=== PATIENT | male | born 1995 | race Caucasian/White ===

== ENCOUNTER 2022-06-12 11:11 | Emergency (ER) | payer OTHER ==
[~2022-06-12] VITALS: Ht 160 cm; Wt 67.1 kg
--- NOTE | 2022-06-12 11:45 | NUR ---
DR MARSH AT BEDSIDE FOR EVAL
--- NOTE | 2022-06-12 11:52 | NUR ---
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
--- NOTE | 2022-06-12 12:15 | NUR ---
Patient discharged to home in stable condition. Written and verbal after care instructions given. Patient verbalizes understanding of instruction.
[2022-06-12 12:16] VITALS: BP 125/75
== END 2022-06-12 12:17 | disposition home or self-care (01) ==
LOC: ER 11:18
DX: S62.326A Displaced fracture of shaft of fifth metacarpal bone, right hand, initial encounter for closed fracture (principal); W22.8XXA Striking against or struck by other objects, initial encounter; Y93.89 Activity, other specified; Y92.89 Other specified places as the place of occurrence of the external cause; Y99.8 Other external cause status
CPT/HCPCS: 73130-TC

== ENCOUNTER 2022-06-19 14:23 | Emergency (ER) | payer SELFPAY ==
[~2022-06-19] VITALS: Ht 160 cm; Wt 59.0 kg
[2022-06-19 14:42] VITALS: BP 134/77
== END 2022-06-19 15:06 | disposition home or self-care (01) ==
LOC: ER 14:24
DX: S62.329D Displaced fracture of shaft of unspecified metacarpal bone, subsequent encounter for fracture with routine healing (principal); X58.XXXD Exposure to other specified factors, subsequent encounter